=== PATIENT | male | born 1985 | race Caucasian/White ===

== ENCOUNTER 2020-11-05 15:51 | Emergency (ER) | payer OTHER, SELFPAY ==
--- NOTE | 2020-11-05 15:54 | ED.GENADULT ---
HPI - General Adult General Chief complaint: Extremity Problem,Nontraumatic Stated complaint: BILAT FOOT PAIN Time Seen by Provider: 11/05/20 15:54 Source: patient Mode of arrival: ambulatory Limitations: no limitations History of Present Illness HPI narrative: 35-year-old male patient presents to the [facility] with complaints of bilateral foot pain for the past 4 days. Patient states the pain came on suddenly 1 morning when he woke up. Patient states it has been gradually getting worse. Patient states he was taking some Aleve which really did not help the pain but started taking some ibuprofen yesterday and feels like it has gotten a little bit better today. Patient states most of the pain is to his left great toe and states also has a little bit of pain to the top of the right foot under the toes. Patient states he has not seen a primary doctor in many years and is supposed to see his new primary doctor next week Tuesday. Denies any fevers, body aches or chills. Denies any injury to the feet that he is aware of. Patient also notes that he gets a lot of anxiety when coming to the doctor which is why his pulse is high. Related Data Allergies Allergy/AdvReac Type Severity Reaction Status Date / Time No Known Allergies Allergy Unverified 09/30/11 18:29 Review of Systems Review of Systems: Narrative: CONSTITUTIONAL: Denies fever, chills, or sweats. EYES: Denies visual changes, redness, or discharge. ENT: Denies rhinorrhea, congestion, sore throat, or otalgia. CARDIOVASCULAR: Denies chest pain, palpitations, or edema. RESPIRATORY: Denies cough or dyspnea. GASTROINTESTINAL: Denies abdominal pain, nausea, vomiting, or diarrhea. GENITOURINARY: Denies dysuria or hematuria. SKIN: Denies rash or itching. MUSCULOSKELETAL: Denies back pain, joint pain, or myalgia. Positive left great toe pain and right foot pain x4 days NEUROLOGIC: Denies headache, numbness, or weakness. PSYCHIATRIC: Denies anxiety or depression. PMFSH Comments At the time of my signature I agree with nursing past medical history, surgical, social, and family history. There is no relevant family history pertinent to the presenting complaint. Exam Narrative: Exam Narrative: GENERAL: Well-appearing, well-nourished, and in no acute distress. HEAD: Normocephalic, atraumatic. EYES: PERRLA and EOMI. ENT: Nares clear, no rhinorrhea or epistaxis. Mucous membranes moist. NECK: Supple. No lymphadenopathy CHEST: Clear to auscultation. No respiratory distress. HEART: Regular rate and rhythm. No murmur heard. Normal peripheral pulses. ABDOMEN: Soft, nontender, nondistended, normal active bowel sounds. EXTREMITIES: Patient able to bear weight and ambulate but has increased pain to the left great toe and the right foot.. No surface trauma, ecchymosis, erythema, lesions, ulcers or break in skin integrity. There is some redness and swelling noted to the DIP joint of the left great toe but no warmth present. The L foot is without obvious asymmetry or deformity when compared to the R foot. No bony step-off, tender to palpation over the base of the right toes and tenderness over the joint space of the left great toe. No tenderness over the midfoot or hindfoot or sole. Normal plantar/dorsiflexion, inversion/eversion. Distal motor and neurovascular status are intact SKIN: Warm, dry, no rash. NEURO: No focal deficits. Alert and oriented x3. Course Vital Signs Vital signs: Vital Signs Temperature 36.7 C 11/05/20 16:03 Pulse Rate 139 H 11/05/20 16:03 Respiratory Rate 20 11/05/20 16:03 Blood Pressure 174/91 H 11/05/20 16:03 Pulse Oximetry 100 11/05/20 16:03 Temperature 36.7 C 11/05/20 16:03 Pulse Rate 139 H 11/05/20 16:03 Respiratory Rate 20 11/05/20 16:03 Blood Pressure 174/91 H 11/05/20 16:03 Pulse Oximetry 100 11/05/20 16:03 Vital signs reviewed The patient has been informed that they may have pre-hypertension or Hypertension based on a BP reading in
[2020-11-05 16:03] VITALS: BP 174/91; PULSE 139; RESP 20; TEMP 36.7; O2SAT 100
[2020-11-05 16:15] VITALS: BP 186/84; PULSE 120
== END 2020-11-05 16:22 | disposition home or self-care (01) ==
PROVIDERS: Emergency Provider Nurse Practitioner Family
DX: M10.9 Gout, unspecified (principal)
CPT/HCPCS: 99203; G0463